=== PATIENT | male | born 1985 | race Caucasian/White ===

== ENCOUNTER 2019-09-19 08:19 | Outpatient (CLI) | payer OTHER, SELFPAY ==
--- NOTE | 2019-09-19 08:24 | CT_ITS ---
WS: [id number] CT LUMBAR SPINE TECHNIQUE: Noncontrast CT of the lumbar spine with coronal and sagittal reformatted images. CLINICAL INFORMATION: CHRONIC LOW BACK PAIN COMPARISON: CT November 02, 2017 and MRI October 08, 2017 DLP: 2453.[address] scans at [facility] use at least one of these dose optimization techniques: automat ed exposure control; mA and/or kV adjustment per patient size (includes targeted exams where dose is matched to clinical indication); or iterative reconstruction. FINDINGS: Mild lumbar curve convex left. No acute compression fractures. No high-grade central canal stenosis. L1-L2: Normal. L2-L3: Normal. L3-L4: Slight retrolisthesis L3 on L4. Mild annular bulging with slight effacement of ventral thecal sac. Mild right and no significant left foraminal narrowing. Mild facet arthropathy. L4-L5: Mild annular bulging. Mild facet arthropathy. Spinal canal and foramen are patent. L5-S1: Mild annular bulging with a tiny central protrusion. Slight effacement of the ventral thecal s ac. Mild right and no significant left foraminal narrowing. Mild facet arthropathy. Spinal stimulator projecting cephalad off the [id number]. Visualized pelvic bony structures: Normal. Paravertebral soft tissues: Normal. CT/CT lumbar spine wo con* [id number] IMPRESSION: 1. Mild lumbar curve convex left. 2. No acute compression fractures. 3. Mild lumbar curve convex left. Slight retrolisthesis L3 on L4. 4. Slight annular bulging L4-5 with mild right L4-5 foraminal narrowing. 5. Tiny central protrusion L5-S1 with slight effacement of the ventral thecal sac. Mild right L5-S1 foraminal narrowing. 6. Mild facet arthropathy L3-L5. 7. Spinal stimulator projecting off the [id number].
== END 2019-09-19 08:20 | disposition home or self-care (01) ==
LOC: CT 08:20
PROVIDERS: Family Provider Emergency Medicine Emergency Medical Services; PCP Emergency Medicine Emergency Medical Services; Visit Provider Emergency Medicine Emergency Medical Services
DX: M47.896 Other spondylosis, lumbar region (principal); G89.29 Other chronic pain; M51.27 Other intervertebral disc displacement, lumbosacral region; M47.816 Spondylosis without myelopathy or radiculopathy, lumbar region
CPT/HCPCS: 72131

== ENCOUNTER 2019-10-04 12:44 | Emergency (ER) | payer OTHER, SELFPAY ==
[2019-10-04 12:46] VITALS: BP 157/100; PULSE 93; RESP 18; TEMP 36.6; O2SAT 98; BMI 28.5
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
[2019-10-04 12:56] VITALS: RESP 17
[2019-10-04 13:26] VITALS: RESP 18
[2019-10-04 13:37] VITALS: BP 143/87; PULSE 99; RESP 16; O2SAT 97
[2019-10-04 13:52] LABS: HIV 1 & 2 Antibody Non-Reactive (Non-Reactiv); HIV 1 & 2 Antigen Non-Reactive (Non-Reactiv)
[2019-10-04 14:08] LABS: Hepatitis B Surface Antigen. Non-Reactive (Nonreactive)
[2019-10-04 14:21] LABS: Hepatitis C Virus Antibody Non-Reactive (Nonreactive)
[2019-10-04 15:05] LABS: Hepatitis B Surface AB. > 1000.0 (0-8.5)
== END 2019-10-04 13:38 | disposition home or self-care (01) ==
PROVIDERS: Emergency Provider Emergency Medicine; Family Provider Emergency Medicine Emergency Medical Services; PCP Emergency Medicine Emergency Medical Services
DX: Z77.21 Contact with and (suspected) exposure to potentially hazardous body fluids (principal); F17.210 Nicotine dependence, cigarettes, uncomplicated
CPT/HCPCS: 12345; 36415; 86706; 86803; 87340; 87806; 99281; 99282

== ENCOUNTER 2019-11-13 08:35 | Outpatient (CLI) | payer OTHER, SELFPAY ==
--- NOTE | 2019-11-13 09:00 | IR_ITS ---
WS: [id number] MYELOGRAM LUMBAR AND THORACIC SPINE Fluoroscopic guided lumbar myelogram CLINICAL INFORMATION: low back pain. COMPARISON: None. TECHNIQUE: The procedure, including risks, benefits, and complications, were discussed with the patie nt who agreed to proceed. A timeout was performed to confirm correct patient, procedure, and site. Using sterile technique, the patient was prepped and draped in the usual sterile fashion. After admin istration of local anesthesia using 1% preservative-free lidocaine and using fluoroscopic guidance, a 22-gauge spinal needle was advanced into the subarachnoid space at the left L4-5 level. Subsequently 13 cc of Omnipaque 300 was administered into the thecal sac. The needle was removed and hemostasis w as achieved. Spot fluoroscopic images were obtained. FLUOROSCOPIC TIME: 1.[address] myelogram report for additional detail. IR/IR myelogram spine thorac/lumb IMPRESSION: 1. Uncomplicated thoracic and lumbar myelogram. 2. Please see CT myelogram report for anatomic detail.
[2019-11-13] MEDS: iohexol 300 mg/mL 50 mL Btl INTRATHECA (10:06)
--- NOTE | 2019-11-13 11:00 | CT_ITS ---
WS: [id number] CT THORACIC MYELOGRAM TECHNIQUE: Contrast-enhanced CT of the thoracic spine with coronal and sagittal reformatted images. CLINICAL INFORMATION: low back pain. Spinal cord stimulator in place. DLP: 1254.[address] scans at [facility] use at least one of these dose optimization techniques: automat ed exposure control; mA and/or kV adjustment per patient size (includes targeted exams where dose is matched to clinical indication); or iterative reconstruction. FINDINGS: Mild thoracic curve convex right. Spinal cord stimulator projected over the mid thoracic spine. No ac [place] appearing compression fractures. No significant central canal stenosis. Vertebral body heights an d disc space heights well-preserved. No significant disc extrusions or protrusions. Mild facet arthro bronson lower thoracic spine. Partially visualized lungs are well aerated. CT/CT thoracic spine w con [id number] IMPRESSION: 1. Mild thoracic kyphosis. No acute compression fractures. 2. Spinal cord stimulator projected over the mid thoracic spine. 3. No significant disc extrusions or protrusions. 4. Mild facet arthropathy in the lower thoracic spine.
--- NOTE | 2019-11-13 11:30 | CT_ITS ---
WS: [id number] CT LUMBAR SPINE TECHNIQUE: Contrast-enhanced CT of the lumbar spine with coronal and sagittal reformatted images. CLINICAL INFORMATION: low back pain. Spinal cord stimulator in place COMPARISON: None. DLP: 1705.[address] scans at [facility] use at least one of these dose optimization techniques: automat ed exposure control; mA and/or kV adjustment per patient size (includes targeted exams where dose is matched to clinical indication); or iterative reconstruction. FINDINGS: Spinal cord stimulator extending off the [id number]-[id number]. No instability on flexion-extension. Mild lum bar curve convex left. No acute compression fractures. No high-grade central canal stenosis. L1-L2: Normal. L2-L3: Normal. L3-L4: Slight retrolisthesis L3 on L4. Mild annular bulging with slight narrowing of the right subart icular recess. Mild right and no significant left foraminal narrowing. Mild facet arthropathy. L4-L5: Mild annular bulging with slight effacement of ventral thecal sac. Mild right and no significa nt left foraminal narrowing. Mild facet arthropathy. Spinal canal is patent. L5-S1: Mild annular bulging. Mild right and no significant left foraminal narrowing. Visualized pelvic bony structures: Normal. Paravertebral soft tissues: Normal. CT/CT lumbar spine w con [id number] IMPRESSION: 1. Mild lumbar curve. No acute compression. No instability on flexion-extensio n. 2. Slight retrolisthesis L3 on L4 with mild right L3-4 foraminal narrowing. 3. Mild right L4-5 and L5-S1 foraminal narrowing. 4. No significant central canal stenosis.
== END 2019-11-13 08:36 | disposition home or self-care (01) ==
LOC: RADWPI 08:39
PROVIDERS: Family Provider Emergency Medicine Emergency Medical Services; PCP Emergency Medicine Emergency Medical Services; Visit Provider Licensed Practical Nurse
DX: M54.5 Low back pain (principal); M48.061 Spinal stenosis, lumbar region without neurogenic claudication; M40.204 Unspecified kyphosis, thoracic region; M47.814 Spondylosis without myelopathy or radiculopathy, thoracic region
CPT/HCPCS: 62305; 72120; 72129; 72132; J2001; Q9967

== ENCOUNTER → 2020-03-12 09:35 | Outpatient (BNVA) | payer OTHER, SELFPAY | PROVIDERS: Family Provider Emergency Medicine Emergency Medical Services; PCP Emergency Medicine Emergency Medical Services; Visit Provider Urology | DX: R31.29 Other microscopic hematuria (principal); F17.210 Nicotine dependence, cigarettes, uncomplicated | CPT/HCPCS: 81001 ==

== ENCOUNTER 2020-12-09 09:48 | Outpatient (CLI) | payer OTHER, SELFPAY ==
--- NOTE | 2020-12-09 09:56 | CT_ITS ---
WS: [id number] CT LUMBAR SPINE TECHNIQUE: Noncontrast CT of the lumbar spine with coronal and sagittal reformatted images. CLINICAL INFORMATION: LOW BACK PAIN COMPARISON: CT lumbar November 13, 2019 DLP: 2008.[address] scans at [facility] use at least one of these dose optimization techniques: automat ed exposure control; mA and/or kV adjustment per patient size (includes targeted exams where dose is matched to clinical indication); or iterative reconstruction. FINDINGS: Mild lumbar curve. No acute compression. No high-grade central canal stenosis. L1-L2: Normal. L2-L3: Mild annular bulging. Spinal canal and foramen are patent. L3-L4: Slight retrolisthesis L3 on L4. Mild annular bulging with slight effacement of ventral thecal sac. Mild right and no significant left foraminal narrowing. Spinal canal is patent. L4-L5: Slight retrolisthesis L4 on L5. Mild annular bulging with slight effacement of ventral thecal sac. Mild right and no significant left foraminal narrowing. Mild facet arthropathy. L5-S1: Mild annular bulging with a tiny shallow central protrusion. Slight effacement of the ventral thecal sac. Spinal canal and foramen are patent. Adrenal glands are normal. A few shotty retroperitoneal lymph nodes. Partially visualized spinal stim ulator CT/CT lumbar spine wo con* [id number] IMPRESSION: 1. Mild lumbar curve. No acute compression. Slight retrolisthesis L3 on L4 and L4 on L5. 2. Mild right L3-4 and right L4-5 foraminal narrowing. 3. No significant central canal stenosis. 4. Mild facet arthropathy L4-L5 and L5-S1. 5. No significant changes since November 13, 2019
== END 2020-12-09 09:49 | disposition home or self-care (01) ==
LOC: RAD 09:51
PROVIDERS: PCP Emergency Medicine Emergency Medical Services; Visit Provider Emergency Medicine Emergency Medical Services
DX: M54.5 Low back pain (principal); M47.816 Spondylosis without myelopathy or radiculopathy, lumbar region; M47.817 Spondylosis without myelopathy or radiculopathy, lumbosacral region
CPT/HCPCS: 72131

== ENCOUNTER 2021-06-02 13:22 | Outpatient (CLI) | payer OTHER, SELFPAY ==
--- NOTE | 2021-06-02 13:30 | MR_ITS ---
WS: [id number] MRI LUMBAR SPINE NONCONTRAST HISTORY: CHRONIC PAIN SYNDROME/DORSALGIA/LUMBAR RADICULOPATHY COMPARISON: 10/08/2017 TECHNIQUE: Sagittal and axial multisequence imaging is submitted. Mild levoscoliosis lumbar spine. Very similar to the prior study. Posterior lumbar alignment is raisa l. Disc spaces and vertebral body heights are well-preserved. Conus terminates normally at L1. L1-L2: Normal. L2-L3: Normal. L3-L4: Mild ligamentum flavum and facet arthritis. Very mild narrowing of the foramen. No high-grade stenosis. L4-L5: Mild annular disc bulging and mild ligamentum flavum and facet arthritis. Small amount of flui d in the facet joints. Mild bilateral foraminal narrowing. L5-S1: Very mild annular disc bulge. No significant stenosis. MR/MR lumbar spine wo con* [id number] IMPRESSION: 1. No significant central or foraminal stenosis. No disc protrusions. 2. Mild foraminal narrowing at L3-4 and L4-5.
== END 2021-06-02 13:23 | disposition home or self-care (01) ==
PROVIDERS: PCP Emergency Medicine Emergency Medical Services; Visit Provider Nurse Practitioner Family
DX: G89.4 Chronic pain syndrome (principal); M54.16 Radiculopathy, lumbar region; M54.50 Low back pain, unspecified
CPT/HCPCS: 72148

== ENCOUNTER → 2021-12-08 12:41 | Outpatient (BNVA) | payer OTHER, SELFPAY | PROVIDERS: PCP Emergency Medicine Emergency Medical Services; Referring Provider Emergency Medicine Emergency Medical Services; Visit Provider Orthopaedic Surgery | DX: M25.561 Pain in right knee (principal); G89.29 Other chronic pain | CPT/HCPCS: 99203 ==

== ENCOUNTER 2021-12-24 11:22 | Outpatient (CLI) | payer OTHER, SELFPAY ==
--- NOTE | 2021-12-24 11:45 | MR_ITS ---
WS: [id number] MRI RIGHT KNEE NONCONTRAST TECHNIQUE: Axial PD, coronal PD fat sat, coronal PD, sagittal PD, and sagittal PD fat-sat images obta ined. CLINICAL INFORMATION: pain COMPARISON: None. FINDINGS: Distal quadriceps and patella tendons are intact. Hypertrophic patella. Normal ACL and PCL. Tiny hori zontal tear involving the posterior horn medial meniscus extends to the articular surface. Normal lat eral meniscus. Mild chronic thinning of the medial and lateral meniscus. Moderate chondromalacia patella worse involving the lateral patella facet. No subchondral edema. Norm al medial and lateral patellar retinaculum. Normal MCL and LCL. Normal bone marrow signal in the femo ral condyles and tibial plateau. No other significant findings. MR/MR knee RT wo con* [id number] IMPRESSION: 1. Normal ACL and PCL. 2. Tiny horizontal tear involving the posterior horn medial meniscus extending to the articular surface. 3. Mild chronic thinning of the medial and lateral meniscus. 4. Moderate chondromalacia patella involving the lateral patella facet. 5. Normal medial and lateral collateral ligaments. Outbridge grading: grade II: blister-like swelling/fraying of articular cartila ge extending to surface
== END 2021-12-24 11:23 | disposition home or self-care (01) ==
PROVIDERS: PCP Emergency Medicine Emergency Medical Services; Visit Provider Orthopaedic Surgery
DX: M25.561 Pain in right knee (principal); M22.41 Chondromalacia patellae, right knee
CPT/HCPCS: 73721

== ENCOUNTER 2022-01-06 14:56 | Outpatient (CLI) | payer OTHER, SELFPAY ==
--- NOTE | 2022-01-06 15:12 | CT_ITS ---
WS: [id number] CT THORACIC SPINE TECHNIQUE: Noncontrast CT of the thoracic spine with coronal and sagittal reformatted images. CLINICAL INFORMATION: THORACIC SPINE PAIN/RADICULOPATHY/CHRONIC PAIN SYNDROME COMPARISON: November 13, 2019 DLP: 1562.[address] scans at [facility] use at least one of these dose optimization techniques: automated e xposure control; mA and/or kV adjustment per patient size (includes targeted exams where dose is matc hed to clinical indication); or iterative reconstruction. FINDINGS: Mild thoracic curve. Mild thoracic kyphosis. No acute compression fractures. No high-grade central ca nal stenosis. Disc space heights and vertebral body heights are well preserved. Adrenal glands are normal. Normal GE junction. Partially visualized lungs are well aerated. Mild face t arthropathy lower thoracic spine. No significant spinal canal or foraminal narrowing. Spinal stimul ator has been removed since the prior CT thoracic CT/CT thoracic spin wo con* [id number] IMPRESSION: 1. Minimal thoracic curve. Mild thoracic kyphosis. 2. No acute compression fractures. Disc space heights and vertebral body heigh ts relatively well-preserved. 3. Mild facet arthropathy lower thoracic spine. 4. No significant spinal canal or foraminal narrowing.
== END 2022-01-06 14:57 | disposition home or self-care (01) ==
PROVIDERS: PCP Emergency Medicine Emergency Medical Services; Visit Provider Surgery
DX: G89.4 Chronic pain syndrome (principal); M54.14 Radiculopathy, thoracic region; M47.814 Spondylosis without myelopathy or radiculopathy, thoracic region
CPT/HCPCS: 72128

== ENCOUNTER 2022-01-07 08:47 | Outpatient (CLI) | payer OTHER, SELFPAY ==
--- NOTE | 2022-01-07 08:56 | MR_ITS ---
WS: [id number] MRI THORACIC SPINE WITHOUT CONTRAST TECHNIQUE: Sagittal T1, T2 and STIR imaging. Axial T2 imaging. Noncontrast imaging obtained. CLINICAL INFORMATION: T SPINE PAIN COMPARISON: CT thoracic January 06, 2022 FINDINGS: Mild thoracic curve. Mild thoracic kyphosis. No acute compression. Disc space heights and vertebral b suresh heights are well preserved. No acute compression fractures. Spinal canal is patent. Normal CSF pulsation artifact in the dorsal spinal canal. Cord signal is norm al. Normal caliber thoracic aorta. Mild facet arthropathy in the lower thoracic spine. Normal prevert ebral soft tissues. No other significant findings. MR/MR thoracic spin wo con* [id number] IMPRESSION: 1. Mild thoracic curve. Mild thoracic kyphosis. 2. No acute compression fractures. 3. Spinal canal is patent. Normal cord signal. 4. No other significant findings.
== END 2022-01-07 08:48 | disposition home or self-care (01) ==
LOC: RAD 08:47
PROVIDERS: PCP Emergency Medicine Emergency Medical Services; Visit Provider Surgery
DX: M54.14 Radiculopathy, thoracic region (principal); G89.4 Chronic pain syndrome; M54.6 Pain in thoracic spine; M40.204 Unspecified kyphosis, thoracic region
CPT/HCPCS: 72146

== ENCOUNTER → 2022-03-23 14:12 | Outpatient (BNVA) | payer OTHER, SELFPAY | PROVIDERS: PCP Emergency Medicine Emergency Medical Services; Visit Provider Orthopaedic Surgery | DX: M76.51 Patellar tendinitis, right knee (principal); M23.303 Other meniscus derangements, unspecified medial meniscus, right knee | CPT/HCPCS: 99213 ==

== ENCOUNTER → 2022-08-11 13:29 | Outpatient (BNVA) | payer OTHER, SELFPAY | PROVIDERS: PCP Emergency Medicine Emergency Medical Services; Referring Provider Emergency Medicine Emergency Medical Services; Visit Provider Nurse Practitioner Family | DX: M25.521 Pain in right elbow (principal); S56.911A Strain of unspecified muscles, fascia and tendons at forearm level, right arm, initial encounter; W00.0XXA Fall on same level due to ice and snow, initial encounter; Y93.23 Activity, snow (alpine) (downhill) skiing, snowboarding, sledding, tobogganing and snow tubing | CPT/HCPCS: 73080; 99214 ==

== ENCOUNTER 2024-09-29 09:38 | Emergency (ER) | payer OTHER, SELFPAY ==
[2024-09-29 09:39] VITALS: BP 171/105; PULSE 87; RESP 18; TEMP 36.7; O2SAT 99
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
[2024-09-29 10:04] LABS: Basophils # 0.1 10^3/uL (0.0-0.1); Eosinophils # 0.2 10^3/uL (0.0-0.8); Eosinophils % 2.6 %; Hematocrit 50.4 % (37-53); Lymphocytes # 1.9 10^3/uL (0.8-4.8); Mean Corpuscular HGB Conc 32.9 g/dL (30-55); Mean Corpuscular Hemoglobin 32.5 pg (27-33); Mean Corpuscular Volume 98.8 fl (82-101); Mean Platelet Volume 9.9 fL (7.4-10.4); Monocytes # 0.9 10^3/uL (0.2-0.9); Monocytes % 11.1 %; Neutrophils # 5.28 10^3/uL (1.8-7.7); Neutrophils % 62.7 %; Nucleated Red Blood Cells % 0 %; Platelet Count 272 10^3/cmm (157-399); Red Cell Distribution Width 13.9 % (12.1-15.1); White Blood Count 8.41 10^3/uL (3.29-11.43)
[2024-09-29 10:15] LABS: Alanine Aminotransferase 22 U/L (0-41); Albumin Level 4.3 g/dL (3.5-5.2); Alkaline Phosphatase 62 U/L (40-130); Anion Gap 12.2 (5-19); Aspartate Amino Transferase 21 U/L (0-40); Blood Urea Nitrogen 16 mg/dL (6-20); Carbon Dioxide 25 mmol/L (22-29); Chloride 98 mmol/L (98-107); Creatinine Clr Calc Pharmacy 102.8626; Globulin 2.7 g/dL (1.3-4.6); Glomerular Filtration Rate 74.1 mL/min (90-130); Glucose 110 mg/dL (65-115); Osmolality Calculated 274 mOsm/kg (285-295); Potassium 4.2 mmol/L (3.5-5.1); Sodium 131 mmol/L (136-145); Total Bilirubin 0.6 mg/dL (0.15-1.2)
[2024-09-29 10:19] LABS: Bilirubin Urine Negative (Negative); Blood Urine Negative (Negative); Glucose Urine UA Negative (Normal); Ketones Urine Negative (Negative); Leukocyte Esterase Urine Negative (Negative); Nitrate Urine Negative (Negative); Protein Urine Negative (Negative); Specific Gravity, Urine 1.007 (1.005-1.030); Urine Appearance Clear (CLEAR); Urine Color Yellow (Yellow); Urobilinogen Urine 0.2 mg/dL (Negative); pH Urine 7.5 (5-7)
[2024-09-29 10:27] LABS: Add Urine Microscopic? YES; Bacteria Urine TRACE /hpf; RBC Urine 0-4 /hpf (0-2); Squamous Epithelial Cell Urine 0-4 /hpf (0-5); WBC Urine 0-4 /hpf (0-5)
[2024-09-29 10:32] VITALS: BP 171/105; PULSE 95; O2SAT 99
[2024-09-29 11:06] VITALS: BP 161/111; PULSE 83; O2SAT 99
== END 2024-09-29 11:12 | disposition home or self-care (01) ==
PROVIDERS: Emergency Provider Family Medicine; PCP Emergency Medicine Emergency Medical Services
DX: S39.012A Strain of muscle, fascia and tendon of lower back, initial encounter (principal); S16.1XXA Strain of muscle, fascia and tendon at neck level, initial encounter; V89.2XXA Person injured in unspecified motor-vehicle accident, traffic, initial encounter
CPT/HCPCS: 36415; 72125; 72128; 80053; 81001; 85025; 99284

== ENCOUNTER 2024-10-12 09:05 | Outpatient (CLI) | payer OTHER, SELFPAY ==
--- NOTE | 2024-10-12 | MM_ITS ---
WS: [id number] Bilateral diagnostic 3D tomosynthesis digital mammogram, 10/12/2024 Clinical Data: BREAST LUMP Comparison: None. Findings: The right breast is normal. The left breast shows increased tissue consistent with gynecomastia. There are no spiculated masses nor clustered calcifications. There are no secondary signs of carcinoma. MM/MM diag BI tomosynthesis [id number] Impression: 1. Negative bilateral mammograms with no prior exam for review. 2. Recommend left breast ultrasound. BIRADS: 1 - Negative. FOLLOW UP: See Report The CAD title checker was used
--- NOTE | 2024-10-12 09:10 | US_ITS ---
WS: [id number] Left breast ultrasound, 10/12/2024 Clinical Data: LEFT BREAST LUMP Comparison: Mammogram, 10/12/2024 Findings: Imaging of the left breast revealed only normal tissue. There were no cysts or masses. US/US breast LT limited* [id number] Impression: 1. Normal left breast ultrasound. 2. Return to clinical evaluation. BIRADS: 1 - Negative. FOLLOW UP: See Report
== END 2024-10-12 09:06 | disposition home or self-care (01) ==
PROVIDERS: PCP Emergency Medicine Emergency Medical Services; Visit Provider Family Medicine
DX: N63.23 Unspecified lump in the left breast, lower outer quadrant (principal)
CPT/HCPCS: 76642; 77062; G0279

== ENCOUNTER 2025-06-11 08:08 | Emergency (ER) | payer OTHER, SELFPAY ==
--- NOTE | 2025-06-11 08:11 | ECG_ITS ---
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 Measurements Intervals [place] Rate: 87 P: 62 OR: 156 QRS: -4 QRSD: 115 T: 55 QT: 336 QTc: 405 Interpretive Statements SINUS RHYTHM INCOMPLETE RIGHT BUNDLE BRANCH BLOCK [90+ ms QRS DURATION, TERMINAL R IN V1/V2, 40+ ms S IN I/aVL/V4/V5/V6] No previous ECG available for comparison Electronically Signed On 06-12-2025 20:27:42 HIM ASSISTANT by Jamal Mccloud M.D. [email or web address]
[2025-06-11 08:12] VITALS: BP 148/104; PULSE 102; RESP 16; TEMP 36.8; O2SAT 97; BMI 27.1
--- NOTE | 2025-06-11 08:18 | CT_ITS ---
WS: [id number] CT HEAD NONCONTRAST HISTORY: Symptoms of acute stroke, strokelike symptoms. LEFT facial numbness. TECHNIQUE: Contiguous axial imaging performed through the brain. Bone and soft tissue windows. Sagittal and coronal reformats reviewed. All CT scans at [facility] use at least one of these dose optimization techniques: automated exposure control; mA and/or kV adjustment per patient size (includes targeted exams where dose is matched to clinical indication); or iterative reconstruction. DLP: 1150.88 mGy COMPARISON: 03/30/2019 No acute intracranial hemorrhage, midline shift or mass effect. No atrophy or prior infarcts or herniation. Ventricles: Normal size with no hydrocephalus. Paranasal sinuses: Mild mucoperiosteal thickening in the ethmoid, sphenoid and maxillary sinuses. No air-fluid levels. Mastoid air cells: Well pneumatized. Calvarium and scalp: Skull is intact with no soft tissue edema or swelling. Congenitally unfused ring of C1. CT/CT head thrombolytic [id number] IMPRESSION: 1. No acute intracranial hemorrhage or edema. 2. No volume loss or prior stroke.
--- NOTE | 2025-06-11 08:19 | W.ED.NEUROSD ---
HPI - Neuro Symptoms/Deficit General: Chief Complaint: Neuro Symptoms/Deficit Stated Complaint: Numbness on left side of face and pressure Time Seen by Provider: 06/11/25 08:13 History of Present Illness: 39-year-old male presents emergency room complains of onset of left facial numbness affecting cheek his tongue and lips began suddenly 45 minutes prior to arrival. Patient arrives. 808. Last known well 725. Patient is not on any anticoagulants. He is awake and alert. NIH score done immediately on upon arrival score of 1 for slight facial droop. He reported some numbness in the left side of his face but actually has some mild hyperesthesia. He also is reporting some ear pain. No eye drooping or tearing no abnormal taste in the mouth. Associated symptoms: Deny chest pain Related Data Home Medications ?Medication ?Instructions ?Recorded ?Confirmed thyroid (pork) 30 mg tablet 30 mg PO DAILY 09/29/24 09/29/24 ([place] Thyroid) Previous Rx's ?Medication ?Instructions ?Recorded diclofenac sodium 75 mg 75 mg PO Q12H PRN pain #20 tabs 09/29/24 tablet,delayed release tizanidine 4 mg tablet 4 mg PO Q6H PRN muscle spasticity 09/29/24 #20 tabs prednisone 20 mg tablet 20 mg PO TID 7 days #21 tabs 06/11/25 Allergies Allergy/AdvReac Type Severity Reaction Status Date / Time No Known Allergies Allergy Verified 08/11/22 13:26 Review of Systems Const: Denies: fever(s) or chills Card: Denies: chest pain Resp: Denies: dyspnea GI: Denies: abdominal pain : Denies: dysuria, urinary frequency or urinary urgency Musc: Denies: neck pain or back pain Skin/Breast: Denies: rash PFSH ED PFSH: Medical History Microscopic hematuria Lumbar disc disease Neck and shoulder pain Displacement of lumbar intervertebral disc Surgical History S/P insertion of spinal cord stimulator 06/30/2018 Dr. Jeyson Carrasco Permanent Spinal Cord Stimulator and Generator Insertion. Family History Father Cancer brain and spine Diabetes Heart attack age 60 Mother Cancer breasts Grandfather Cancer Diabetes Grandfather No problems noted. 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 NIH stroke score NIHSS: Level Of Consciousness - 1a: 0 Level Of Consciousness Questions - 1b: Both Correct Level Of Consciousness Commands - 1c: Both Correct Best Gaze - 2: Normal Visual Lewis - 3: No Visual Loss Facial Palsy - 4: Minor Paralysis Motor Arm Right - 5: No Drift Motor Arm Left - 5: No Drift Motor Leg Right - 6: No Drift Motor Leg Left - 6: No Drift Limb Ataxia - 7: Absent Sensory - 8: Normal Best Language - 9: No Aphasia Dysarthia - 10: Normal Extinction And Inattention - 11: 0 Score: Total Score: 1 Physical Exam Const: GENERAL APPEARANCE: cooperative ORIENTATION/CONSCIOUSNESS: Yes awake, Yes oriented to person, Yes oriented to place and Yes oriented to time HENMT: COMMON NORMALS: normocephalic, atraumatic and hearing grossly normal bilaterally HEAD & SCALP: normocephalic and atraumatic Resp: COMMON NORMALS: normal respiratory effort, No retractions, No use of accessory muscles and clear to auscultation bilaterally AUSCULTATION: clear to auscultation bilaterally Cardio: COMMON NORMALS: regular rate, regular rhythm and No murmurs present (Cardio) RATE: regular rate RHYTHM: regular rhythm GI: COMMON NORMALS: Soft to palpation and No hepatosplenomegaly present AUSCULTATION: Yes normoactive bowel sounds PALPATION: Yes Soft to palpation, No Tenderness to palpation present (GI), No Guarding due to palpation present (GI) and Yes No hepatosplenomegaly present Extremity: COMMON NORMALS: normal to inspection, capillary refill normal, no clubbing, cyanosis or edema, no calf tenderness and no pedal edema Neuro: SENSORIUM/ORIENTATION: Yes oriented to person, Yes oriented to place and Yes oriented to time Skin: COMMON NORMALS: no rashes or lesions noted GENERAL SKIN EXAM: no rashes or lesions noted Course Vital Signs: Vital signs: Vital Signs Temperature 98.2 F 06/11/25 08:12 Pulse Rate 85 06/11/25 09:41 Respiratory Rate 16 06/11/25 08:12 Blood Pressure 165/92 06/11/25 09:41 Pulse Oximetry 97 06/11/25 09:41 Oxygen Delivery Me thod Room Air 06/11/25 08:12 MDM - Neuro Symptoms/Deficit Medical Decision Making Patient initial evaluation as a stroke alert is NIH is 1. He has some facial weakness no sparing of the forehead. Suspect he has a Combs's palsy he has no other symptoms at this time. Patient has been drinking alcohol. Will discharge patient home with steroids. Reviewed case with Dr. Venegas on-call for neurology she agrees. Lab Data 06/11/25 08:18 06/11/25 08:[address] 06/11/25 08:18 IMPRESSION: 1. No acute intracranial hemorrhage or edema. 2. No volume loss or prior stroke. Laboratory Results WBC 7.35 10^3/uL (3.29-11.43) 06/11/25 08:18 RBC 5.56 10^6/uL (3.85-5.65) 06/11/25 08:18 Hgb 17.60 g/dL (11.27-16.99) H 06/11/25 08:18 Hct 53.7 % (37-53) H 06/11/25 08:18 MCV 96.6 fl (82-101) 06/11/25 08:18 MCH 31.7 pg (27-33) 06/11/25 08:18 MCHC 32.8 g/dL (30-55) 06/11/25 08:18 RDW 13.8 % (12.1-15.1) 06/11/25 08:18 Plt Count 307 10^3/cmm (157-399) 06/11/25 08:18 MPV 9.2 fL (7.4-10.4) 06/11/25 08:18 Neut % (Auto) 50.3 % 06/11/25 08:18 Lymph % (Auto) 33.7 % 06/11/25 08:18 [place] % (Auto) 10.2 % 06/11/25 08:18 Eos % (Auto) 3.8 % 06/11/25 08:18 Baso % (Auto) 1.0 % 06/11/25 08:18 Neut # (Auto) 3.70 10^3/uL (1.8-7.7) 06/11/25 08:18 Lymph # (Auto) 2.5 10^3/uL (0.8-4.8) 06/11/25 08:18 [place] # (Auto) 0.8 10^3/uL (0.2-0.9) 06/11/25 08:18 Eos # (Auto) 0.3 10^3/uL (0.0-0.8) 06/11/25 08:18 Baso # (Auto) 0.1 10^3/uL (0.0-0.1) 06/11/25 08:18 Nucleated RBC % (auto) 0 % 06/11/25 08:18 Nucleated RBCs # 0.0 /100WBC 06/11/25 08:18 PT 12.30 SECONDS (12.1-14.9) 06/11/25 08:18 INR 0.85 (0.8-1.2) 06/11/25 08:18 APTT 26.2 SECONDS (23.9-36.7) 06/11/25 08:18 Sodium 143 mmol/L (136-145) 06/11/25 08:18 Potassium 4.5 mmol/L (3.5-5.1) 06/11/25 08:18 Chloride 105 mmol/L (98-107) 06/11/25 08:18 Carbon Dioxide 25 mmol/L (22-29) 06/11/25 08:18 Anion Gap 17.5 (5-19) 06/11/25 08:18 BUN 11 mg/dL (6-20) 06/11/25 08:18 Creatinine 1.1 mg/dL (0.7-1.2) 06/11/25 08:18 GFR Calculation 73.8 mL/min (90-130) L 06/11/25 08:18 Glucose 108 mg/dL (65-115) 06/11/25 08:18 POC Glucose 107 mg/dL (70-110) 06/11/25 08:15 Calculated Osmolality 296 mOsm/kg (285-295) H 06/11/25 08:18 Calcium 9.0 mg/dL (8.5-10.5) 06/11/25 08:18 Total Bilirubin 0.2 mg/dL (0.15-1.2) 06/11/25 08:18 AST 35 U/L (0-40) 06/11/25 08:18 ALT 29 U/L (0-41) 06/11/25 08:18 Alkaline Phosphatase 69 U/L (40-130) 06/11/25 08:18 Total Protein 7.6 g/dL (6.6-8.7) 06/11/25 08:18 Albumin 4.9 g/dL (3.5-5.2) 06/11/25 08:18 Globulin 2.7 g/dL (1.3-4.6) 06/11/25 08:18 Urine Color Yellow (Yellow) 06/11/25 09:18 Urine Appearance Clear (CLEAR) 06/11/25 09:18 Urine pH 6.5 (5-7) 06/11/25 09:18 Ur Specific [place] 1.019 (1.005-1.030) 06/11/25 09:18 Urine Protein Trace (Negative) A 06/11/25 09:18 Urine Glucose (UA) Negative (Normal) 06/11/25 09:18 Urine Ketones Negative (Negative) 06/11/25 09:18 Urine Blood Negative (Negative) 06/11/25 09:18 Urine Nitrate Negative (Negative) 06/11/25 09:18 Urine Bilirubin Negative (Negative) 06/11/25 09:18 Urine Urobilinogen 0.2 mg/dL (Negative) 06/11/25 09:18 Ur Leukocyte Esterase Negative (Negative) 06/11/25 09:18 Urine RBC 0-2 /hpf (0-2) 06/11/25 09:18 Urine WBC 0-5 /hpf (0-5) 06/11/25 09:18 Ur Squamous Epith Cells 0-5 /hpf (0-5) 06/11/25 09:18 Amorphous Sediment Not Reportable 06/11/25 09:18 Urine Bacteria None seen /hpf (NONE) 06/11/25 09:18 Hyaline Casts 0-4 /lpf H 06/11/25 09:18 Urine Opiates Screen Negative ng/mL (Negative) 06/11/25 09:18 Ur Barbiturates Screen Negative ng/mL (Negative) 06/11/25 09:18 Ur Phencyclidine Scrn Negative ng/mL (Negative) 06/11/25 09:18 Ur Amphetamines Screen Negative ng/mL (Negative) 06/11/25 09:18 U Benzodiazepines Scrn Negative ng/mL (Negative) 06/11/25 09:18 Urine Cocaine Screen Negative ng/mL (Negative) 06/11/25 09:18 U Marijuana (THC) Screen Negative ng/mL (Negative) 06/11/25 09:18 All radiology interpretation(s) finalized by discharge Discharge Plan Discharge Patient Disposition: Home Clinical Impression: Left-sided Combs's palsy Condition: Stable Prescriptions: New prednisone 20 mg tablet 20 mg PO TID 7 Days Qty: 21 0RF No Action thyroid (pork) [[place] Thyroid] 30 mg tablet 30 mg PO DAILY tizanidine 4 mg tablet 4 mg PO Q6H PRN (Reason: muscle spasticity) Qty: 20 0RF Rx Instructions: do not exceed 3 doses per 24 hrs diclofenac sodium 75 mg tablet,delayed release (DR/EC) 75 mg PO Q12H PRN (Reason: pain) Qty: 20 0RF Discharge Orders: Discharge ED (Routine); Ordered 06/11/25 Ordered By: Abe Smith Referrals: Corey King DO [Primary Care Provider, Emergency Medicine] Discharge Diet: Usual diet Discharge Activity: Resume usual activity Patient Instructions: Combs Palsy (ED), Opioid Safety, Pain Management, Patient Portal & [place] Instructions Activity Restrictions/Additional Instructions: Thank you for choosing [facility] for your healthcare needs today. It is very important that you follow up as instructed or that you return to the Emergency Department should you have concerns or if your condition changes or worsens in any way. Emergency department visits are focused on emergent conditions, in some cases you may require further evaluation on an outpatient basis. You were seen in the emergency room with discomfort on the left side of your face on exam there is no sign of stroke. You have a Combs's palsy that is very early at this point it may worsen over the next several days. Will start you on a course of steroids this helps minimize the symptoms and improve chances for recovery. Follow-up with your primary care doctor. (Please note that included in your discharge packet is information concerning opioid safety and pain management. This information is given to all patients were discharged from the ER regardless of their discharge diagnosis or the medicines they usually take or are prescribed.) Print Language: Persian Coding Level of Care Code ED Chemical Strength Tester for Evelyn Scott
--- OUTSIDE RECORDS SUMMARY | 2025-06-11 08:21 | XMS_ITS | Patient Health Record ---
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 Name Role Phone [facility] Corey HA Primary Care Provider Un available Remigio Marinelli Unavailable [phone] Allergies Allergen (clinical drug ingredient) Drug/Non Drug Allergy documented on EMR Reaction Allergy Type Onset Date Status No Known Drug Allergy Unknown Drug Allergy Active Reason For Referral No Information Medications Medication SIG (Take, Route, Frequency, Duration) Notes Start Date End Date Status Pantoprazole Sodium 40 MG Tablet Delayed Release 1 tablet Orally Once a day; Duration: 90 days 09/14/2022 Active [employer] 500-32.5 MG Tablet as directed Orally Active Folic Acid 1 MG Tablet 1 tablet Orally O nce a day Active Co Q 10 Active Testosterone Active Allergy Active Social History Social History Depression Screening Social Info Question Answer Notes PHQ-9 Little interest or pleasure in doing thin gs Several days Feeling down, depressed, or hopeless Several day s Trouble falling or staying asleep, or sleeping t oo much More than half the days Feeling tired or having little energy More than half the days Poor appetite or overeating Several days Feeling bad about yourself, or that you are a failure, or have let yourself or your family down Not at all Trouble concentrating on thi ngs, such as reading the newspaper or watching television Several days Moving or speaking so slowly that other people could have noticed. Or the opposite ? being so fidgety or restless that you have been moving around a lot more than usual Not at all Thoughts that you would be b yessi off , or of hurting yourself in some way Not at all Total Score 8 Interpretation Mild Depression Drugs/Alcohol: Social Info Question Answer Notes Alcohol Screen (Audit-C) Did you have a drink containing alcohol in the past year? Yes How often did you have a drink containing alcohol in the past year? 2 to 4 times a month (2 points) Points 2 Interpretation Negative Tobacco Use: Social Info Question Answer Notes xTobacco Use/Smoking Are you a current every day sm oker Problems Problem Type SNOMED Code ICD Code Onset Dates Problem Status W/U Status Risk Notes Problem Chronic pain (68378975) Other chronic pain (G89.29) Active confirmed Problem Chronic pain syndrome (545377596) Chronic pain syndrome (G89.4) Active confirmed Problem Chronic pain (39474598) Chronic pain (G89.29) Active confirmed Problem Gastroesophageal reflux disease with esophagitis (disorder) (817319564) Gastro-esophageal reflux disease with esophagitis, without bleeding (K21.00) Active confirmed Problem Gastroesophageal reflux disease (444948846) Gastroesophageal reflux disease, unspecified whether esophagitis present (K21.9) Active confirmed Plan Of Treatment Pending Test Test Name Order Date Prothrombin Time 50708 04/09/2021 Basic Metabolic Panel (BMP) 94711 2020 CBC w\ Auto Diff 45990 04/09/2021 Partial Thromboplastin Time 42644 2020 Chest PA/Lat-82414 04/09/2021 XR Outside CD 10/07/2023 XR Outside CD 10/07/2023 XR Outside CD 10/07/2023 Electrocardiogram 12 Lead Tracing-44051 04/09/2021 COVID 19 PCR--02795 04/09/2021 Insurance Providers Payer Name Payer Address Payer Phone Subscriber Number Group Number Insured Name Patient Relationship to Insured Coverage Start Date Coverage End Date [employer] [address] [place] [phone] [id number] Milvia Brito Self - patient is the insured Medical (General) History Medical History History ICD Code chicken pox arthritis migraine headaches back trouble high blood pressure depression renal failure Surgical History Surgery Date(Month/Year) spinal cord stimulator and removal 2020 2017 Hospitalization History Reason Date(Month/Year) see surgical hx
[2025-06-11 08:26] LABS: Hematocrit 53.7 % (37-53); Hemoglobin 17.60 g/dL (11.27-16.99); Mean Corpuscular HGB Conc 32.8 g/dL (30-55); Mean Corpuscular Hemoglobin 31.7 pg (27-33); Mean Corpuscular Volume 96.6 fl (82-101); Nucleated Red Blood Cells % 0 %; Platelet Count 307 10^3/cmm (157-399); Red Blood Count 5.56 10^6/uL (3.85-5.65); White Blood Count 7.35 10^3/uL (3.29-11.43)
[2025-06-11 08:37] LABS: INR 0.85 (0.8-1.2); Prothrombin Time 12.30 SECONDS (12.1-14.9)
[2025-06-11 08:38] LABS: Partial Thromboplastin Time 26.2 SECONDS (23.9-36.7)
[2025-06-11 08:44] LABS: Alanine Aminotransferase 29 U/L (0-41); Albumin Level 4.9 g/dL (3.5-5.2); Alkaline Phosphatase 69 U/L (40-130); Anion Gap 17.5 (5-19); Aspartate Amino Transferase 35 U/L (0-40); Blood Urea Nitrogen 11 mg/dL (6-20); Calcium 9.0 mg/dL (8.5-10.5); Carbon Dioxide 25 mmol/L (22-29); Chloride 105 mmol/L (98-107); Globulin 2.7 g/dL (1.3-4.6); Glucose 108 mg/dL (65-115); Osmolality Calculated 296 mOsm/kg (285-295); Potassium 4.5 mmol/L (3.5-5.1); Sodium 143 mmol/L (136-145); Total Protein 7.6 g/dL (6.6-8.7)
[2025-06-11 09:41] VITALS: BP 165/92; PULSE 85; O2SAT 97
[2025-06-11 09:44] LABS: Glucose Urine UA Negative (Normal); Nitrate Urine Negative (Negative); Specific Gravity, Urine 1.019 (1.005-1.030)
[2025-06-11 09:50] LABS: Add Urine Microscopic? YES; PCP Screen Urine Negative (Negative)
== END 2025-06-11 09:49 | disposition home or self-care (01) ==
PROVIDERS: Emergency Provider Family Medicine; PCP Emergency Medicine Emergency Medical Services
DX: G51.0 Bell's palsy (principal)
CPT/HCPCS: 36416; 70450; 80053; 80306; 81001; 82962; 85025; 85610; 85730; 93005; 99284